=== PATIENT | female | born 1940 | race Caucasian/White ===

== ENCOUNTER 2022-05-08 11:36 | Inpatient (IN) | payer MEDICARE, OTHER ==
[~2022-05-08] VITALS: Ht 165.1 cm; Wt 80.7 kg
--- NOTE | 2022-05-08 12:15 | NUR ---
BIB staff from her SNF in [place] for medical clearance for MHU. The ER is saturated and the pt was left in the ER hallway. Pt was seen by in the hallway.
--- NOTE | 2022-05-08 12:20 | NUR ---
Pt is in her w/c in the ER hallway. Pt is confused and keeps trying to get out of her w/c. Pt does not have a assigned primary nurse. Spoke with Sarah (nursing structural steel erection supervisor) and notified her and requested a sitter/staff for 1:1 observation for pt safety.
[2022-05-08 12:30] LABS: HEMATOCRIT 40.6 % (31.2-41.9); MEAN CORPUSCULAR HEMOGLOBIN 31.3 uug (24.7-32.8); MEAN CORPUSCULAR VOLUME 93.7 fL (75.5-95.3); PLATELET COUNT (AUTO) 256 K/uL (179-408)
[2022-05-08 12:39] LABS: CARBON DIOXIDE 32 mmol/L (21-32); CHLORIDE 106 mmol/L (98-107); CREATININE 1.1 mg/dL (0.6-1.3); GLUCOSE 99 mg/dL (74-106); POTASSIUM 4.1 mmol/L (3.5-5.1); UREA NITROGEN, BLOOD 19 mg/dL (7-18)
[2022-05-08 12:44] LABS: ALANINE AMINOTRANSFERASE 17 U/L (14-59); ALKALINE PHOSPHATASE 59 U/L (50-136); ASPARTATE AMINOTRANSFERASE 12 U/L (15-37); BILIRUBIN,DIRECT 0.2 mg/dL (0.0-0.2); BILIRUBIN,TOTAL 0.5 mg/dL (0.2-1.0); TOTAL PROTEIN, SERUM 7.1 g/dL (6.4-8.2)
[2022-05-08 12:47] LABS: ETHANOL < 3 MG/DL (0-0)
--- NOTE | 2022-05-08 13:10 | NUR ---
Pt moved to room 5B.
--- NOTE | 2022-05-08 13:45 | NUR ---
Pt is sitting in a chair in room 5b and eating lunch, NAD noted at this time.
[2022-05-08 14:15] LABS: ACETAMINOPHEN < 10.0 ug/mL (10-30)
--- NOTE | 2022-05-08 14:30 | NUR ---
Pt is medically clear for psych eval, called Geri who stated she will be in for eval.
--- NOTE | 2022-05-08 17:20 | NUR ---
Pt placed on a 5150 Hold by LENA Nevarez report given to MHU via telephone.
--- NOTE | 2022-05-08 17:34 | NUR ---
Pt brought [place] [facility] [place] (w/c came with pt from her SNF).
[2022-05-08 17:45] VITALS: BP 177/74
[2022-05-08] MEDS ORDERED: MAGNESIUM HYDROXIDE 30 ML LIQUID UDC PO PRN (17:45)
[2022-05-08] MEDS ORDERED: MAG HYDROX/AL HYDROX/SIMETH 30 ML LIQUID UDC PO PRN (17:45)
[2022-05-08] MEDS ORDERED: ACETAMINOPHEN 325 MG TABLET PO PRN (17:45)
[2022-05-08] MEDS ORDERED: BLOOD SUGAR DIAGNOSTIC 1 EACH STRIP VI ONE (17:45)
--- NOTE | 2022-05-08 18:49 | NUR ---
Admitted a case of 82 years old female from [facility] ER with history of Alzheimers, Dementia, Lumbar Radiculopathy, Anxiety. Patient lives in [facility]. Patient is on 5150 status. Patient arrived in a wheelchair accompanied by RN. Initial report given by Volodymyr ORTIZ. On admission patient was cooperative to physical assessment and vital signs. Skin assessment revealed redness on left breast fold. Patient requires more than minimal assistance with ADL. Upon face to face, patient appeared alert, oriented to person, anxious, combative at times. Patient denies SI/HI AH/VH, SOB, pain or any discomfort. Patient refused to sign and consent to all admission documents. Patient was also offered brief orientation to unit rules and policies and given copy of patient's rights handbook. Patient belongings were inventoried and contrabands removed. Psychiatrist Rere and Medical physician Peyton were informed and orders were carried out. Reassurance given. Fall and safety precautions implemented.
--- NOTE | 2022-05-08 19:32 | NUR ---
Called [facility], ([phone]), spoke with JANEL Hernández, who confirmed pt's statu is DNR, [id number] will fax POLST documentation.
[2022-05-08] MEDS ORDERED: BENA20TA9 PO (19:36)
[2022-05-08] MEDS ORDERED: RISP1TAB7 PO (19:36)
[2022-05-08] MEDS ORDERED: DONE5TAB34 PO (19:36)
[2022-05-08] MEDS ORDERED: RISP0.5T5 PO (19:36)
[2022-05-08] MEDS ORDERED: DULO20CA PO (19:36)
[2022-05-08] MEDS ORDERED: ALBU6.7H9 IH (19:36)
[2022-05-08] MEDS ORDERED: MEMA10TA PO (19:36)
[2022-05-08] MEDS ORDERED: CYAN100T44 PO (19:36)
[2022-05-08 20:21] VITALS: BP 136/57
--- NOTE | 2022-05-08 20:30 | NUR ---
Received patient in her room, she was fixing her bed. She is noted A/O x 1. she is poor historian. she has poor insight and judgment into her admission to MHU. she is guarded and forgetful. she is able to ambulate with steady gait. Her V/S are stable. She was given PO fluids and snacks. She is reassured for her safety. safety and fall precautions are in place. will continue to monitor.
[2022-05-09] MEDS: ZOLPIDEM 5 MG TABLET PO PRN (00:03)
--- NOTE | 2022-05-09 00:04 | NUR ---
Patient was noted pacing the hallway. She was confused and disoriented. She stated, "I need to go home. my children are home alone. i can't state tonight". patient was oriented to reality. Multiple redirections given. She was able to take Ambien to help her sleep. Will continue to monitor.
[2022-05-09 07:30] VITALS: BP 125/72
[2022-05-09 08:04] LABS: HEMATOCRIT 40.4 % (31.2-41.9); MEAN CORPUSCULAR HEMOGLOBIN 31.6 uug (24.7-32.8); MEAN CORPUSCULAR VOLUME 93.4 fL (75.5-95.3); PLATELET COUNT (AUTO) 273 K/uL (179-408)
[2022-05-09 08:29] LABS: POTASSIUM 4.1 mmol/L (3.5-5.1)
[2022-05-09] MEDS: MEMANTINE HCL 10 MG TABLET PO SCH ×2 (10:56→20:29)
[2022-05-09] MEDS ORDERED: ALBUTEROL SULFATE 8 GM HFA.AER.AD IH PRN (11:00)
[2022-05-09] MEDS ORDERED: ALBUTEROL SULFATE 2.5 MG/3 ML NEBU NEB PRN (11:15)
--- NOTE | 2022-05-09 11:46 | NUR ---
KRISTAL Initial Discharge Note: Pt [facility] [address] [address] ([phone]). KRISTAL spoke with pt's daughter/DPOA, Sophia ([phone]) who confirmed that she would like the pt to return to [facility] upon discharge. Sophia stated she will be involved via telephone as she lives 2 hours away. KRISTAL will continue to work with pt, family and MD to ensure a safe and proper discharge plan.
--- NOTE | 2022-05-09 11:48 | NUR ---
Firearms Report: Ludlow Machine Operator completed and submitted a DOJ firearms report for 5150 a danger to others and grave disability certifications. A copy of report has been placed in patient chart.
--- NOTE | 2022-05-09 11:48 | NUR ---
KRISTAL Family Contact: KRISTAL spoke with pt's daughter/DPOA, Sophia ([phone]) who confirmed that she would like the pt to return to [facility] upon discharge. Sophia stated she will be involved via telephone as she lives 2 hours away. Sophia stated pt has 3 other children. However, Sophia stated she is the only DPOA/field contact technician.
[2022-05-09] MEDS: LORAZEPAM 0.5 MG TABLET PO PRN ×2 (14:26→21:42)
--- NOTE | 2022-05-09 15:11 | NUR ---
Gps/Boilers Inspector- MRSA swab to both nares , obtained , sent to lab.
--- NOTE | 2022-05-09 15:13 | NUR ---
Gps/Psychopaedic Nurse- Crying spells noted, confused, disoriented, pacing around , goes to other patient's room, constantly needing redirections. Reoriented from time to time. Compliant with her meds.
[2022-05-09 16:00] VITALS: BP 134/70
[2022-05-09 20:13] VITALS: BP 145/90
[2022-05-09] MEDS: ATORVASTATIN 10 MG TABLET PO SCH (20:29)
[2022-05-09] MEDS: DONEPEZIL 5 MG TABLET PO SCH (20:29)
[2022-05-09] MEDS: QUETIAPINE FUMARATE 25 MG TABLET PO SCH (20:29)
--- NOTE | 2022-05-09 20:30 | NUR ---
RECEIVED PATIENT IN THE HALLWAY. SHE IS NOTED PACING THE HALLWAY AND WONDERING AROUND THE UNIT. SHE IS A/O X 1, SHE IS VERY FORGETFUL AND DISORIENTED. HER SPEECH IS DISORGANIZED, SHE IS A POOR HISTORIAN. HOWEVER, SHE IS EASILY REDIRECTED. NO AGGRESSIVE OR COMBATIVE BX NOTED AT THIS TIME. PATIENT IS ABLE TO COMPLY WITH HER MEDICATION REGIMENT. SHE WAS GIVEN PO FLUIDS AND SNACKS. HER V/S ARE STABLE, PT IN NO DISTRESS. SHE IS REASSURED FOR HER SAFETY. SAFETY AND FALL PRECAUTIONS ARE IN PLACE. WILL CONTINUE TO MONITOR.
[2022-05-10 07:30] VITALS: BP 134/62
[2022-05-10] MEDS ORDERED: CYANOCOBALAMIN 100 MCG TABLET PO SCH (09:00)
[2022-05-10] MEDS: MEMANTINE HCL 10 MG TABLET PO SCH ×2 (09:35→20:38)
[2022-05-10] MEDS: ESCITALOPRAM OXALATE 10 MG TABLET PO SCH (09:38)
[2022-05-10] MEDS: CYANOCOBALAMIN 1,000 MCG TABLET PO SCH (09:39)
[2022-05-10] MEDS: BENAZEPRIL HCL 20 MG TABLET PO SCH (09:39)
[2022-05-10 16:00] VITALS: BP 115/61
[2022-05-10] MEDS: LORAZEPAM 0.5 MG TABLET PO PRN (17:29)
--- NOTE | 2022-05-10 17:30 | NUR ---
Gps/Maintenance Instructor- Remains confused, constantly needing redirections, wanders to other patient's room . Patient was able to take a long nap this pm. When patient woke up , she start pushing doors claimed she needed to go home, wants her clothes to wear .Monitored for safety
[2022-05-10 19:45] VITALS: BP 123/65
[2022-05-10] MEDS: ATORVASTATIN 10 MG TABLET PO SCH (20:38)
[2022-05-10] MEDS: DONEPEZIL 5 MG TABLET PO SCH (20:38)
[2022-05-10] MEDS: QUETIAPINE FUMARATE 25 MG TABLET PO SCH (20:39)
--- NOTE | 2022-05-11 05:18 | NUR ---
GPS NOTES: Patient is noted to be confused, wandering around the unit. She is somewhat intrusive going in to other patients room. She needs constant re-direction, however tends to be aggressive when re-directed. She is med compliant. She slept uninterrupted during shift. Frequent monitoring for safety in placed.
[2022-05-11 07:51] VITALS: BP 114/61
[2022-05-11] MEDS: ESCITALOPRAM OXALATE 10 MG TABLET PO SCH (08:04)
[2022-05-11] MEDS: MEMANTINE HCL 10 MG TABLET PO SCH ×2 (08:04→20:59)
[2022-05-11] MEDS: CYANOCOBALAMIN 1,000 MCG TABLET PO SCH (08:04)
[2022-05-11] MEDS: BENAZEPRIL HCL 20 MG TABLET PO SCH (08:05)
--- NOTE | 2022-05-11 09:41 | NUR ---
Pt received ambulating unit hallway. Confused, disoriented, and forgetful. Requires frequent redirection. Compliant with medications as ordered. No behavioral issues noted at this time.
[2022-05-11] MEDS: QUETIAPINE FUMARATE 25 MG TABLET PO SCH ×3 (09:55→20:59)
[2022-05-11 16:18] VITALS: BP 92/56
[2022-05-11 19:59] VITALS: BP 122/55
[2022-05-11] MEDS: DONEPEZIL 5 MG TABLET PO SCH (20:59)
[2022-05-12 07:53] VITALS: BP 136/58
[2022-05-12] MEDS: LORAZEPAM 0.5 MG TABLET PO PRN ×2 (08:11→20:07)
[2022-05-12] MEDS: QUETIAPINE FUMARATE 25 MG TABLET PO SCH ×3 (08:11→20:06)
[2022-05-12] MEDS: BENAZEPRIL HCL 20 MG TABLET PO SCH (08:12)
[2022-05-12] MEDS: ESCITALOPRAM OXALATE 10 MG TABLET PO SCH (08:12)
[2022-05-12] MEDS: MEMANTINE HCL 10 MG TABLET PO SCH ×2 (08:13→20:06)
[2022-05-12] MEDS: CYANOCOBALAMIN 1,000 MCG TABLET PO SCH (09:12)
--- NOTE | 2022-05-12 15:33 | NUR ---
The patient spends most of the shift, wondering around the halls, walking into the wrong rooms and requiring frequent redirection and reorientation. This patient is labile and is easily angered by most minimal situations. Poor impulse control and insight noted. However, she is medication compliant and can be pleasant at times.This music writer will continue to reassure and assist the patient when needed. Safety Stratiges are in place.
[2022-05-12 16:41] VITALS: BP 90/57
[2022-05-12 19:52] VITALS: BP 112/56
[2022-05-12] MEDS: DONEPEZIL 5 MG TABLET PO SCH (20:06)
[2022-05-12] MEDS: ZOLPIDEM 5 MG TABLET PO PRN (20:56)
[2022-05-13] MEDS: LORAZEPAM 0.5 MG TABLET PO PRN ×4 (02:27→23:05)
[2022-05-13 07:40] VITALS: BP 134/71
[2022-05-13] MEDS: CYANOCOBALAMIN 1,000 MCG TABLET PO SCH (09:00)
[2022-05-13] MEDS: MEMANTINE HCL 10 MG TABLET PO SCH ×2 (09:23→20:44)
[2022-05-13] MEDS: QUETIAPINE FUMARATE 25 MG TABLET PO SCH ×3 (09:23→20:44)
[2022-05-13] MEDS: BENAZEPRIL HCL 20 MG TABLET PO SCH (09:28)
[2022-05-13] MEDS: GLUCERNA SHAKE 237 ML CAN PO SCH (12:00)
--- NOTE | 2022-05-13 15:26 | NUR ---
Received patient Confused disoriented and forgetful.wandering around in the unit unable to found her room at all time, Requires frequent redirection. PRN Ativan give for agitation behavior ,patient with poor insight and impair judgement ,continue monitoring for safety.
[2022-05-13 16:25] VITALS: BP 127/82
[2022-05-13 19:36] VITALS: BP 136/76
[2022-05-13] MEDS: ZOLPIDEM 5 MG TABLET PO PRN (21:32)
--- NOTE | 2022-05-14 04:29 | NUR ---
GPS NOTES: Patient wanders around the unit, intrusive and going to other patients room. Needs constant re-direction as she is confused and forgetful.She tends to be argumentative with staff when being directed. She is med compliant. Continues to be labile. Ativan given. Closely monitoring observed.
[2022-05-14 07:30] VITALS: BP 136/74
[2022-05-14] MEDS: CYANOCOBALAMIN 1,000 MCG TABLET PO SCH (08:23)
[2022-05-14] MEDS: MEMANTINE HCL 10 MG TABLET PO SCH ×2 (08:23→20:21)
[2022-05-14] MEDS: LORAZEPAM 0.5 MG TABLET PO PRN ×2 (08:23→21:33)
[2022-05-14] MEDS: QUETIAPINE FUMARATE 25 MG TABLET PO SCH ×3 (08:23→20:21)
[2022-05-14] MEDS: BENAZEPRIL HCL 20 MG TABLET PO SCH (08:24)
[2022-05-14] MEDS: GLUCERNA SHAKE 237 ML CAN PO SCH (08:24)
[2022-05-14 16:00] VITALS: BP 121/60
[2022-05-14 19:44] VITALS: BP 113/55
--- NOTE | 2022-05-15 05:16 | NUR ---
Pt confused and labile. Shower given. Patient yells at staff from time to time. Needs continuous reorientation and reassurance. Safety strategies in place. Sleep hours 7.30.
[2022-05-15 07:30] VITALS: BP 139/70
[2022-05-15] MEDS: CYANOCOBALAMIN 1,000 MCG TABLET PO SCH (09:04)
[2022-05-15] MEDS: MEMANTINE HCL 10 MG TABLET PO SCH ×2 (09:04→20:09)
[2022-05-15] MEDS: QUETIAPINE FUMARATE 25 MG TABLET PO SCH ×3 (09:04→20:09)
[2022-05-15] MEDS: BENAZEPRIL HCL 20 MG TABLET PO SCH (09:04)
[2022-05-15] MEDS: GLUCERNA SHAKE 237 ML CAN PO SCH (09:05)
[2022-05-15 16:00] VITALS: BP 117/65
--- NOTE | 2022-05-15 16:22 | NUR ---
KRISTAL Discharge Update: KRISTAL contacted Kristin in admissions at [facility] located at [address] [address] ([phone]) and stated that the geriatric social worker, Rachelle TORRES will call this business writer tomorrow to discuss transportation details for the pt's return back to [place] upon discharge.
--- NOTE | 2022-05-15 17:39 | NUR ---
GPS: Patient remain wanders around in the unit, Needs constant re-direction as she is confused and forgetful.compliant with meds. pt tends to be argumentative with staff when being directed. Continues to be labile. continue plan of care.
[2022-05-15 19:49] VITALS: BP 143/77
[2022-05-16 07:30] VITALS: BP 120/54
[2022-05-16] MEDS: MEMANTINE HCL 10 MG TABLET PO SCH ×2 (08:56→20:43)
[2022-05-16] MEDS: BENAZEPRIL HCL 20 MG TABLET PO SCH (08:56)
[2022-05-16] MEDS: QUETIAPINE FUMARATE 25 MG TABLET PO SCH ×3 (08:56→20:43)
[2022-05-16] MEDS: CYANOCOBALAMIN 1,000 MCG TABLET PO SCH (08:56)
[2022-05-16] MEDS: GLUCERNA SHAKE 237 ML CAN PO SCH (08:57)
--- NOTE | 2022-05-16 13:00 | NUR ---
Neva Holt from the court called about pt's rights. I gave her info she requested from the 5150 and 14 day hold forms. She spoke to the pt on the phone. Pt did not want to attend to the court hearing.
[2022-05-16 16:00] VITALS: BP 112/66
--- NOTE | 2022-05-16 16:20 | NUR ---
Received patient pacing in the hallway, confused, forgetful, disoriented, not knowing where to go, agitated and anxious at times. Patient is A/O X 2 to person. Requires more than minimal assistance with ADL. Reality orientation provided. Fall and safety precautions implemented.
--- NOTE | 2022-05-16 16:35 | NUR ---
Patient had court hearing today and pen tester gave 14 day probable cause for GD only.
[2022-05-16 20:07] VITALS: BP 116/48
--- NOTE | 2022-05-17 02:02 | NUR ---
Patient has been resting well this PM. Medication compliant, confused and disoriented. Wonders around the unit , trying to get out. Stands by the door at times. When instructed to move, the patient becomes hostile and yells at this staff. This patient requires frequent reorientation and redirection throughout the shift. Safety stratiges are in place. No acute issues noted at this time.
[2022-05-17 07:30] VITALS: BP_SYST 124; BP_SYST 125; BP_DIAS 54; BP_DIAS 68
[2022-05-17] MEDS: CYANOCOBALAMIN 1,000 MCG TABLET PO SCH (08:51)
[2022-05-17] MEDS: MEMANTINE HCL 10 MG TABLET PO SCH ×2 (08:51→20:57)
[2022-05-17] MEDS: QUETIAPINE FUMARATE 25 MG TABLET PO SCH ×3 (08:51→20:57)
[2022-05-17] MEDS: GLUCERNA SHAKE 237 ML CAN PO SCH (08:52)
[2022-05-17] MEDS: BENAZEPRIL HCL 20 MG TABLET PO SCH (08:52)
[2022-05-17] MEDS: LORAZEPAM 1 MG TABLET PO PRN (11:13)
--- NOTE | 2022-05-17 11:20 | NUR ---
Patient is given Ativan 1 mg at 11:13 for anxiety, agitation, combativeness, will be monitored for effectiveness.
--- NOTE | 2022-05-17 13:58 | NUR ---
Received patient sleeping in her room. Patient is disoriented, confused, disorganized, anxious at times. Patient states "Where are my kids, have you seen them?" "You're heartless, and I'll punch you if you say they're not here one more time!" Patient needs to be redirected. Patient is compliant with medications. Reality orientation provided. Fall and safety precautions implemented.
[2022-05-17 16:00] VITALS: BP 108/61
--- NOTE | 2022-05-17 20:30 | NUR ---
Received patient in her room in bed asleep but easily arousable. patient is A/O x 1. she is calm and pleasant upon approached. Patient is a poor historian. Her speech is disorganized. Pt needs constant reality orientation but she is easily redirectable. She is reassured for her safety. safety and fall precautions are in place. V/S stable, she was given PO fluids and snacks. will continue to monitor.
[2022-05-17 21:41] VITALS: BP 132/67
[2022-05-18 07:37] VITALS: BP 127/59
[2022-05-18] MEDS: MEMANTINE HCL 10 MG TABLET PO SCH ×2 (08:26→20:06)
[2022-05-18] MEDS: BENAZEPRIL HCL 20 MG TABLET PO SCH (08:27)
[2022-05-18] MEDS: QUETIAPINE FUMARATE 25 MG TABLET PO SCH ×3 (08:27→20:06)
[2022-05-18] MEDS: CYANOCOBALAMIN 1,000 MCG TABLET PO SCH (08:27)
[2022-05-18] MEDS: GLUCERNA SHAKE 237 ML CAN PO SCH (08:28)
--- NOTE | 2022-05-18 15:41 | NUR ---
Received patient sleeping in her room. Patient is A/O X 1 to person. Patient is confused, disoriented, disorganized, cooperative with nursing care, compliant with medications. Patient states "I have to go home. They're waiting for me there" "People screams too much here. How can you stand this?" Patient is labile and have outburst at times. Reassurance given. Fall and safety precautions implemented.
[2022-05-18 16:24] VITALS: BP 119/60
[2022-05-18 21:06] VITALS: BP 134/74
--- NOTE | 2022-05-19 01:55 | NUR ---
Received patient in her room in bed, she is noted awake A/O x 1. she is calm and pleasant upon approached. Patient is a poor historian. Her speech is disorganized. Pt needs constant reality orientation but she is easily redirectable. She is reassured for her safety. safety and fall precautions are in place. V/S stable, she was given PO fluids and snacks. will continue to monitor.
[2022-05-19 07:52] VITALS: BP 115/60
[2022-05-19] MEDS: QUETIAPINE FUMARATE 25 MG TABLET PO SCH ×3 (08:36→20:16)
[2022-05-19] MEDS: CYANOCOBALAMIN 1,000 MCG TABLET PO SCH (08:38)
[2022-05-19] MEDS: MEMANTINE HCL 10 MG TABLET PO SCH ×2 (08:38→20:15)
[2022-05-19] MEDS: BENAZEPRIL HCL 20 MG TABLET PO SCH (08:38)
[2022-05-19] MEDS: GLUCERNA SHAKE 237 ML CAN PO SCH (08:39)
--- NOTE | 2022-05-19 14:38 | NUR ---
Received patient sleeping in her room. Patient is A/O X 1 to self. Patient is confused, forgetful, needs to be redirected, disorganized, disoriented, pacing in the hallway without knowing where to go or what to say, flat mood at times, pleasant most of the time, cooperative with nursing care, compliant with medications. Reassurance given. Fall and safety precautions implemented.
[2022-05-19 16:19] VITALS: BP 117/58
--- NOTE | 2022-05-19 20:30 | NUR ---
Received patient in her room in bed, she is noted awake A/O x 1. she is calm and pleasant upon approached. Patient is a poor historian. she is forgetful. Pt needs constant reality orientation and redirections. she is easily redirectable and able to follow unit rules. She is reassured for her safety. safety and fall precautions are in place. V/S stable, she was given PO fluids and snacks. will continue to monitor.
[2022-05-19 21:42] VITALS: BP 136/64
[2022-05-20 07:50] VITALS: BP 142/87
[2022-05-20] MEDS: LORAZEPAM 1 MG TABLET PO PRN ×2 (08:44→20:13)
[2022-05-20] MEDS: MEMANTINE HCL 10 MG TABLET PO SCH ×2 (08:44→20:13)
[2022-05-20] MEDS: CYANOCOBALAMIN 1,000 MCG TABLET PO SCH (08:44)
[2022-05-20] MEDS: GLUCERNA SHAKE 237 ML CAN PO SCH (08:45)
[2022-05-20] MEDS: QUETIAPINE FUMARATE 25 MG TABLET PO SCH ×3 (08:45→20:13)
[2022-05-20] MEDS: BENAZEPRIL HCL 20 MG TABLET PO SCH (08:45)
--- NOTE | 2022-05-20 15:33 | NUR ---
Received patient Confused disoriented and forgetful.wandering around in the unit unable to found her room and restroom at all time, Requires frequent redirection. poor insight and poor impulse control PRN Ativan give for agitation behavior . unable to attend in group activity ,continue monitoring for safety.
[2022-05-20 15:55] VITALS: BP 128/72
[2022-05-20 20:55] VITALS: BP 117/66
--- NOTE | 2022-05-21 01:42 | NUR ---
This patient is confused and disoriented. When the patient needs some assist with her basic ADLS, she will yell and become easily angered with the staff providing care. Constant redirection and reorientation is provided. Many times the patient wonders around into other patients rooms. Safety stratiges are in place and continuing to monitor the patient for outbursts and behavior escalation. Poor impulse control and no situational awareness.
[2022-05-21 07:41] VITALS: BP 146/46
[2022-05-21] MEDS: QUETIAPINE FUMARATE 25 MG TABLET PO SCH ×3 (08:41→20:26)
[2022-05-21] MEDS: MEMANTINE HCL 10 MG TABLET PO SCH ×2 (08:41→20:26)
[2022-05-21] MEDS: GLUCERNA SHAKE 237 ML CAN PO SCH (08:41)
[2022-05-21] MEDS: CYANOCOBALAMIN 1,000 MCG TABLET PO SCH (08:41)
[2022-05-21] MEDS: BENAZEPRIL HCL 20 MG TABLET PO SCH (08:41)
[2022-05-21] MEDS: LORAZEPAM 1 MG TABLET PO PRN (12:00)
[2022-05-21 15:24] VITALS: BP 102/60
[2022-05-21 19:59] VITALS: BP 126/64
[2022-05-21] MEDS: ZOLPIDEM 5 MG TABLET PO PRN (21:03)
[2022-05-22] MEDS: LORAZEPAM 1 MG TABLET PO PRN ×2 (02:44→21:00)
[2022-05-22 07:30] VITALS: BP 155/60
[2022-05-22] MEDS: CYANOCOBALAMIN 1,000 MCG TABLET PO SCH (08:44)
[2022-05-22] MEDS: MEMANTINE HCL 10 MG TABLET PO SCH ×2 (08:45→21:02)
[2022-05-22] MEDS: QUETIAPINE FUMARATE 25 MG TABLET PO SCH ×3 (08:45→21:00)
[2022-05-22] MEDS: BENAZEPRIL HCL 20 MG TABLET PO SCH (08:46)
[2022-05-22] MEDS: GLUCERNA SHAKE 237 ML CAN PO SCH (08:47)
--- NOTE | 2022-05-22 10:15 | NUR ---
SW Discharge Update: This SW spoke with [facility] ([phone]) and spoke with social media sr strategy manager, Mackenzie who confirmed that pt is welcome back on Friday. Mackenzie confirmed that pt will be provided transportation from [place] to return to [facility] on Friday at 11am. Mackenzie confirmed that transportation will be by non ambulance van with wheelchair accessibility by pile driver operator, Fabrice.
[2022-05-22 16:00] VITALS: BP 113/35
--- NOTE | 2022-05-22 17:43 | NUR ---
Received patient sleeping in her room. Patient is A/O X 2 to person. Patient is disoriented, confused, pacing in the hallway. Patient is compliant with medications. Reassurance given. Fall and safety precautions implemented.
[2022-05-22 20:11] VITALS: BP 127/58
--- NOTE | 2022-05-23 05:07 | NUR ---
Patient appears to be more confused and forgetful this shift. She is aimlessly wandering in the unit looking lost and going from room to room. She is needing more re-direction and re-orientation to reality. She is making no meaningful conversations, very disorganized thoughts noted. She is making statements "I am waiting for this ladies, for my paperworks", "I need to wait for my daughter" "How to get out here, I need to be home". She easily gets irritated when presented to reality and not understanding concepts at this time. She was given Ativan as ordered. Effective. Patient slept well. No distress noted. All safety precautions implemented.
[2022-05-23 07:30] VITALS: BP 119/60
--- NOTE | 2022-05-23 09:58 | NUR ---
KRISTAL Family Contact: SW spoke with pt's daughter/DPOA, Sophia ([phone]) with Dr. Jernigan. Dr. Jernigan discussed [facility]. Sophia is aware and agreeable with the discharge plan.
[2022-05-23] MEDS: QUETIAPINE FUMARATE 25 MG TABLET PO SCH ×3 (10:07→20:15)
[2022-05-23] MEDS: CYANOCOBALAMIN 1,000 MCG TABLET PO SCH (10:07)
[2022-05-23] MEDS: MEMANTINE HCL 10 MG TABLET PO SCH ×2 (10:08→20:16)
[2022-05-23] MEDS: BENAZEPRIL HCL 20 MG TABLET PO SCH (10:09)
[2022-05-23] MEDS: GLUCERNA SHAKE 237 ML CAN PO SCH (10:10)
--- NOTE | 2022-05-23 15:57 | NUR ---
Received patient sleeping in her room. Pt. is A/O X 1 to person. Patient is confused, disoriented, forgetful, pacing and wandering in the hallway without knowing where to go or what she wants. Patient is irritable at times. Requires more than minimal assistance with ADL, needs to be redirected. Patient is compliant with medications and cooperative with nursing care. Reality orientation provided. Fall and safety precautions implemented.
[2022-05-23 16:00] VITALS: BP 101/58
[2022-05-23 20:11] VITALS: BP 100/52
--- NOTE | 2022-05-23 20:30 | NUR ---
RECEIVED PATIENT IN THE HALLWAY. SHE IS NOTED A/O X 1. SHE IS FORGETFUL AND SHE REQUIRED REALITY ORIENTATION. SHE IS ABLE TO FOLLOW SIMPLE DIRECTIONS. SHE IS A POOR HISTORIAN. NO AGGRESSIVE OR COMBATIVE BX NOTED AT THIS TIME. PATIENT IS REASSURED FOR HER SAFETY. SAFETY AND FALL PRECAUTIONS ARE IN PLACE. WILL CONTINUE TO MONITOR.
--- NOTE | 2022-05-23 20:40 | NUR ---
PATIENT WAS GIVEN PO FLUIDS AND SNACKS. SHE IS COMPLIANT WITH MEDICATION REGIMENT DIET AND PLAN OF CARE.
[2022-05-24 07:30] VITALS: BP 106/51
[2022-05-24] MEDS: LORAZEPAM 1 MG TABLET PO PRN (08:39)
[2022-05-24] MEDS: MEMANTINE HCL 10 MG TABLET PO SCH (08:41)
[2022-05-24] MEDS: QUETIAPINE FUMARATE 25 MG TABLET PO SCH (08:41)
[2022-05-24] MEDS: CYANOCOBALAMIN 1,000 MCG TABLET PO SCH (08:41)
[2022-05-24 08:42] VITALS: BP 105/50
[2022-05-24] MEDS: BENAZEPRIL HCL 20 MG TABLET PO SCH (08:42)
[2022-05-24] MEDS: GLUCERNA SHAKE 237 ML CAN PO SCH (08:43)
--- NOTE | 2022-05-24 09:02 | NUR ---
KRISTAL Discharge Note: [facility] located at [address] [place] [address] via non ambulance facility transport by facility shuttle driver at 11:30AM. KRISTAL spoke with Dane in admissions and social workers Kristin and assistant city attorney Mackenzie who are aware and agreeable with the discharge plan. KRISTAL spoke with pts daughter/DPOA, Sophia ([phone]) who is aware and agreeable with the discharge plan. Pt is aware and agreeable with discharge plan. Pt is alert and oriented x2, is unable to plan for self-care at this time. However, pt is willing to accept care at SNF. Pt denies any suicidal or homicidal ideation. Pt will follow-up at the facility with her returning Psychiatrist, Dr. Gonzales and Services Coordinator, Dr. Rhoades. Pt presents with calm mood and congruent affect. PHARMACY: Pharm[address], [place] [address] ([phone]).
--- NOTE | 2022-05-24 09:55 | NUR ---
KRISTAL Discharge Note Update: [facility] ([phone]) located at [address] [place] [address] via non ambulance facility transport by facility moving van driver at 11:30AM. KRISTAL spoke with Dane in admissions and social workers Kristin and mortgage assistant Mackenzie who are aware and agreeable with the discharge plan. KRISTAL spoke with pts daughter/DPOA, Sophia ([phone]) who is aware and agreeable with the discharge plan. Pt is aware and agreeable with discharge plan. Pt is alert and oriented x2, is unable to plan for self-care at this time. However, pt is willing to accept care at SNF. Pt denies any suicidal or homicidal ideation. Pt will follow-up at the facility with her returning Psychiatrist, Dr. Gonzales and Soa Integration Architect, Dr. Rhoades. Pt presents with calm mood and congruent affect. PHARMACY: Pharm[address], [place] [address] ([phone]).
--- NOTE | 2022-05-24 11:50 | NUR ---
[facility] via non ambulance facility transport by facility solo truck driver at 11:30AM. SW spoke with pts daughter/DPOA, Sophia ([phone]) who is aware and agreeable with the discharge plan. Pt is aware and agreeable with discharge plan. Pt is alert and oriented x2, is unable to plan for self-care at this time. Pt denies any suicidal or homicidal ideation. Pt will follow-up at the facility with her returning Psychiatrist, Dr. Gonzales and Coremaker, Dr. Rhoades. Pt presents with calm mood and congruent affect. all personal belonging returned to patient,vital sign stable denies any pain or discomfort.
== END 2022-05-24 11:55 | DRG 885 ==
LOC: ER 11:36 → GPS 16:00
PROVIDERS: ADMIT Psychiatry & Neurology Psychiatry; ATTEND Internal Medicine
DX: F29 Unspecified psychosis not due to a substance or known physiological condition (principal); F02.83 Dementia in other diseases classified elsewhere, unspecified severity, with mood disturbance; F02.84 Dementia in other diseases classified elsewhere, unspecified severity, with anxiety; F02.818 Dementia in other diseases classified elsewhere, unspecified severity, with other behavioral disturbance; F02.82 Dementia in other diseases classified elsewhere, unspecified severity, with psychotic disturbance; G30.9 Alzheimer's disease, unspecified; E78.5 Hyperlipidemia, unspecified; I49.5 Sick sinus syndrome; I10 Essential (primary) hypertension; R62.7 Adult failure to thrive; Z20.822 Contact with and (suspected) exposure to COVID-19; F39 Unspecified mood [affective] disorder; Z68.29 Body mass index [BMI] 29.0-29.9, adult; Z79.899 Other long term (current) drug therapy
CPT/HCPCS: 36415; 85025; 93005; A4663; G0480

== ENCOUNTER 2022-10-17 11:36 | Inpatient (IN) | payer MEDICARE, OTHER ==
[~2022-10-17] VITALS: Ht 165.1 cm; Wt 80.7 kg
[~2022-10-17 11:36] MED LIST: ALBU6.7H9 IH; BENA20TA9 PO; CYAN100T44 PO
--- NOTE | 2022-10-17 12:00 | NUR ---
Pt is confused, keeps walking out of room 1B and wanderting around the ER. Pt brought back to room 1B multiple times. Nursing supervisor gate services notified and requested 1:1 sitter for pt safety.
[2022-10-17] MEDS ORDERED: HALOPERIDOL LACTATE 5 MG/1 ML VIAL ONE ×2 (12:07→13:16)
[2022-10-17] MEDS ORDERED: LORAZEPAM 2 MG/1 ML VIAL ONE ×2 (12:08→13:14)
--- NOTE | 2022-10-17 12:08 | NUR ---
Pt keeps on getting out of bed and wandering. Redirect back to bed multiple times, safety measures in place.
[2022-10-17 12:14] LABS: HEMATOCRIT 42.4 % (31.2-41.9); MEAN CORPUSCULAR HEMOGLOBIN 31.2 uug (24.7-32.8); MEAN CORPUSCULAR VOLUME 93.6 fL (75.5-95.3); PLATELET COUNT (AUTO) 257 K/uL (179-408)
[2022-10-17] MEDS ORDERED: LORAZEPAM 2 MG/1 ML VIAL IM ONE ×2 (12:15→13:15)
[2022-10-17] MEDS ORDERED: HALOPERIDOL LACTATE 5 MG/1 ML VIAL IM ONE ×2 (12:15→13:15)
--- NOTE | 2022-10-17 12:27 | NUR ---
Pt is sitting in bed, lunch tray provided, pt ate w/ good appettite.
[2022-10-17 12:42] LABS: CARBON DIOXIDE 30 mmol/L (21-32); CHLORIDE 106 mmol/L (98-107); GLUCOSE 89 mg/dL (74-106); POTASSIUM 4.1 mmol/L (3.5-5.1); UREA NITROGEN, BLOOD 19 mg/dL (7-18)
[2022-10-17 12:50] LABS: ALANINE AMINOTRANSFERASE 23 U/L (14-59); ALKALINE PHOSPHATASE 68 U/L (50-136); ASPARTATE AMINOTRANSFERASE 11 U/L (15-37); BILIRUBIN,DIRECT 0.2 mg/dL (0.0-0.2); BILIRUBIN,TOTAL 0.8 mg/dL (0.2-1.0); TOTAL PROTEIN, SERUM 7.6 g/dL (6.4-8.2)
[2022-10-17 12:53] LABS: THYROID STIMULATING HORMONE 3.247 mIU/mL (0.358-3.740)
[2022-10-17 13:53] LABS: *BILIRUBIN,URIN NEGATIVE (NEGATIVE); *BLOOD, URINE 2+ (NEGATIVE); *CLARITY,URINE CLEAR (CLEAR); *COLOR,URINE YELLOW (YELLOW); *KETONES,URINE NEGATIVE (NEGATIVE); *UROBILINOGEN,URINE 0.2 E.U./dl (NORMAL); LEUKOCYTE ESTERASE ,URINE 3+ (NEGATIVE); NITRITE, URINE NEGATIVE (NEGATIVE); UGLUCOSE NEGATIVE (NEGATIVE)
[2022-10-17 14:18] LABS: *AMPHETAMINE, URINE NEGATIVE (NEGATIVE); *CANNABINOID, URINE NEGATIVE (NEGATIVE); *COCCAINE, URINE NEGATIVE (NEGATIVE)
--- NOTE | 2022-10-17 14:24 | NUR ---
Pt is medically cleared by Dr Pan, nora Hamilton BLOWER INSULATOR from [facility] for eval.
[2022-10-17] MEDS ORDERED: LIDOCAINE HCL 1% 20 ML VIAL ONE (14:27)
[2022-10-17] MEDS ORDERED: CEFTRIAXONE 1 G VIAL ONE (14:27)
[2022-10-17] MEDS ORDERED: CEFTRIAXONE 1 G in IV DEXTROSE 5% 50 ML IV ONE (14:30)
[2022-10-17] MEDS ORDERED: CEFTRIAXONE 1 G VIAL IM ONE (14:45)
[2022-10-17 15:07] LABS: *PHENCYCLIDINE SCREEN,URINE NEGATIVE (NEGATIVE)
[2022-10-17 15:59] LABS: RBC,URINE 20-50 /HPF (0-3)
[2022-10-17 16:00] LABS: BACTERIA,URINE MANY /HPF (NONE SEEN); SQUAMOUS EPITHELIAL CELL,UR FEW /HPF (NONE SEEN); WBC,URINE 20-50 /HPF (0-3)
--- NOTE | 2022-10-17 16:00 | NUR ---
SBAR report given to ANGEL Fitzpatrick and pt trans [place] [facility] via W[facility]C.
--- NOTE | 2022-10-17 16:15 | NUR ---
Nursing - Received report from [facility] ER Nurse. Admitted from ER via wheel chair, in no sign of any distress.Alert, oriented x 2 ,Has a metal bracelet, and bracelet with a beads, yellow ring on her right ring finger , refused to give up, told patient will put it in the safe and will return them back to her when she leaves from here. Skin very dry tenting , also refused body checks, wants to keep her clothes for now , will attempt to offer shower when full settled . On face to face with patient , denies any S.I. or H.I. . Oriented to unit settings , routine admission care gwensteve.
[2022-10-17] MEDS ORDERED: MAG HYDROX/AL HYDROX/SIMETH 30 ML LIQUID UDC PO PRN (16:30)
[2022-10-17] MEDS ORDERED: MAGNESIUM HYDROXIDE 30 ML LIQUID UDC PO PRN (16:30)
[2022-10-17] MEDS ORDERED: LORAZEPAM 0.5 MG TABLET PO PRN (16:30)
[2022-10-17] MEDS ORDERED: BLOOD SUGAR DIAGNOSTIC 1 EACH STRIP VI ONE (16:30)
[2022-10-17] MEDS ORDERED: ACETAMINOPHEN 325 MG TABLET PO PRN (16:30)
--- NOTE | 2022-10-17 17:00 | NUR ---
Pt refused EKG, nursing staff present and aware of pt refusal..
[2022-10-17] MEDS: LORAZEPAM 1 MG TABLET PO PRN (20:28)
--- NOTE | 2022-10-18 04:36 | NUR ---
Received patient awake, ambulate to hallways, with episode of wandering to other rooms, episode of collecting dirty linen from hamper. Patient given ativan earlier on the shift for anxiety, and episode of agitation, get upset when given redirections. Patient sleep most of the night, continent of bowel and bladder, cont to monitor.
[2022-10-18] MEDS: LORAZEPAM 1 MG TABLET PO PRN ×2 (06:26→12:27)
--- NOTE | 2022-10-18 06:31 | NUR ---
Patient awale ambulate to hallways, patient refused shower at this time, Patient looking for door, stated wanted to go home now, patient noted with anxiety wanders to other rooms, reorient patient that the doctor will see her first. patient un redirectable,given ativan po as ordered, cont to monitor.
[2022-10-18 07:00] LABS: HEMATOCRIT 37.8 % (31.2-41.9); MEAN CORPUSCULAR HEMOGLOBIN 31.4 uug (24.7-32.8); MEAN CORPUSCULAR VOLUME 92.7 fL (75.5-95.3); PLATELET COUNT (AUTO) 227 K/uL (179-408)
[2022-10-18 07:17] LABS: CARBON DIOXIDE 26 mmol/L (21-32); CHLORIDE 107 mmol/L (98-107); CREATININE 0.9 mg/dL (0.6-1.3); GLUCOSE 124 mg/dL (74-106); POTASSIUM 3.8 mmol/L (3.5-5.1); UREA NITROGEN, BLOOD 25 mg/dL (7-18)
[2022-10-18 08:00] VITALS: BP 113/64
[2022-10-18] MEDS: QUETIAPINE FUMARATE 25 MG TABLET PO SCH ×3 (10:58→20:48)
[2022-10-18] MEDS: MEMANTINE HCL 10 MG TABLET PO SCH ×2 (11:02→20:47)
[2022-10-18] MEDS ORDERED: ALBUTEROL SULFATE 8 GM HFA.AER.AD IH PRN (11:15)
[2022-10-18] MEDS ORDERED: ALBUTEROL SULFATE 2.5 MG/3 ML NEBU NEB PRN (11:45)
[2022-10-18] MEDS: CEphaleXIN 500 MG CAPSULE PO SCH ×2 (14:00→21:14)
--- NOTE | 2022-10-18 14:20 | NUR ---
Gps/Veterinary Science Teacher- Continue to observed patient wander around, going room to room , gets irritable, agitated when being redirected , put patient in the arley-chair, appeared to be sleepy , safety emphasized.
--- NOTE | 2022-10-18 14:44 | NUR ---
KRISTAL Initial Discharge Note: [facility] located at [address] [address] . Per Rachelle at the facility, pt is not welcome back due to aggressive behavior. Pt's daughter/DPOA, Sophia [phone] is aware and agreeable that pt will discharge to a different prison facility upon discharge. KRISTAL will continue to work with pt, family and MD to ensure a safe and proper discharge plan.
--- NOTE | 2022-10-18 14:47 | NUR ---
SW Family Contact: Pt's daughter/DPOA, Sophia [phone] is aware and agreeable that pt will discharge to a different long-term facility upon discharge. Sophia is very kind and discussed her appreciation for this SW's assistance last admission and this admission. Sophia asked for pt to be transferred closer to [facility] and agreed to this SW referring to [facility] and rehab in [place] [phone].
--- NOTE | 2022-10-18 14:47 | NUR ---
Firearms Report: Head Of Measurement & Insights completed and submitted a DOJ firearms report for 5150 grave disability certifications. A copy of report has been placed in patient chart.
[2022-10-18 15:18] VITALS: BP 128/60
[2022-10-18] MEDS: ZOLPIDEM 5 MG TABLET PO PRN (20:55)
[2022-10-19] MEDS: CEphaleXIN 500 MG CAPSULE PO SCH ×3 (05:54→21:18)
[2022-10-19 07:56] VITALS: BP 129/57
--- NOTE | 2022-10-19 09:14 | NUR ---
Gps/Head Waiter/Waitress Banquet- Confused, incoherent, constantly needing to be redirected, wanders around , fidgety encouraged to take her routine am meds.
[2022-10-19] MEDS: QUETIAPINE FUMARATE 25 MG TABLET PO SCH ×3 (09:15→20:25)
[2022-10-19] MEDS: MEMANTINE HCL 10 MG TABLET PO SCH ×2 (09:15→20:25)
[2022-10-19] MEDS: BENAZEPRIL HCL 20 MG TABLET PO SCH (09:19)
[2022-10-19] MEDS: CYANOCOBALAMIN 1,000 MCG TABLET PO SCH (09:19)
--- NOTE | 2022-10-19 11:07 | NUR ---
GPS 14 Day Hold Certification: Patient place on 9880, Certification given to patient and explained. Patient was informed that a certification review hearing will be hel with in four days. Also, patient's right advocate will call to provide technical services assistant on answering her questions. The court has been notified of this certification via [facility] Portal this day.
[2022-10-19 16:36] VITALS: BP 138/60
--- NOTE | 2022-10-19 18:00 | NUR ---
Gps/Facility Planner- Refusing to shower, refusing pm care , confused , wants to leave, kept wandering around claimed looking for her car , she parked outside . Prompted to take routine medications , awol risk, constantly needing reorientation , emphasized . safety .
[2022-10-19] MEDS: LORAZEPAM 1 MG TABLET PO PRN (19:39)
[2022-10-19 20:41] VITALS: BP 111/53
--- NOTE | 2022-10-19 21:48 | NUR ---
AAOx1-2 Confused and disoriented. Wanders around the unit. Easily redirected. Continent of bowel and bladder. Patient on ABT for UTI. On Keflex, given as ordered. Compliant with her meds. Ativan given for anxiety. Will monitor patient. Siderails up for safety.
[2022-10-19] MEDS: ZOLPIDEM 5 MG TABLET PO PRN (23:12)
[2022-10-20] MEDS: CEphaleXIN 500 MG CAPSULE PO SCH ×3 (05:49→21:00)
[2022-10-20 08:17] VITALS: BP 137/73
[2022-10-20] MEDS: BENAZEPRIL HCL 20 MG TABLET PO SCH (09:57)
[2022-10-20] MEDS: MEMANTINE HCL 10 MG TABLET PO SCH ×2 (09:58→20:46)
[2022-10-20] MEDS: CYANOCOBALAMIN 1,000 MCG TABLET PO SCH (09:58)
[2022-10-20] MEDS: QUETIAPINE FUMARATE 25 MG TABLET PO SCH ×3 (09:59→20:46)
[2022-10-20 16:29] VITALS: BP 129/66
[2022-10-20] MEDS: LORAZEPAM 1 MG TABLET PO PRN (16:56)
--- NOTE | 2022-10-20 18:31 | NUR ---
Pt is confused, incoherent, nonsensical, constantly needing to be redirected, wanders around , fidgety , easily irritable and can be combative at times. Pt talk to her self and can be intrusive at times. Pt ca not sustain a meaningful conversation. Pt was compliant with medications on this shift. Pt was reoriented, redirected, reassurance and emotional support provided. Safety measures put in place,continue to monitor for safety.
[2022-10-20 20:00] VITALS: BP 130/64
[2022-10-21] MEDS: CEphaleXIN 500 MG CAPSULE PO SCH ×3 (06:20→20:34)
[2022-10-21 07:59] VITALS: BP 113/54
[2022-10-21] MEDS: BENAZEPRIL HCL 20 MG TABLET PO SCH (09:01)
[2022-10-21] MEDS: CYANOCOBALAMIN 1,000 MCG TABLET PO SCH (09:01)
[2022-10-21] MEDS: MEMANTINE HCL 10 MG TABLET PO SCH ×2 (09:01→20:34)
[2022-10-21] MEDS: QUETIAPINE FUMARATE 25 MG TABLET PO SCH ×3 (09:01→20:34)
--- NOTE | 2022-10-21 16:07 | NUR ---
GPS: Nursing Notes: Thought Disorder: patient is awake and responding to her name, wandering around the unit aimlessly, impaired judgment, poor insight, redirected and reoriented during shift, unable to formulate a viable plan for self care, talking incoherently, gets easily angry when redirected, disorganized, confused, forgetful, unable to find her room by self at times, continue to monitor for safety, continue with treatment plan.
[2022-10-21 16:33] VITALS: BP 121/65
[2022-10-21] MEDS: GLUCERNA SHAKE 237 ML CAN PO SCH (16:46)
[2022-10-21 19:54] VITALS: BP 116/56
[2022-10-21] MEDS: LORAZEPAM 1 MG TABLET PO PRN (20:33)
--- NOTE | 2022-10-22 02:33 | NUR ---
Received patient wandering around the unit, going in and out of different patients rooms, disoriented. Confused and unable to be redirected for more the a couple minutes. This patient refused to take her medications and swatted at this service writer advisor, the first time they were offered, but did comply shortly after. The patient is unable to engage in any sensible conversation and has poor insight or situational awareness. Safety Stratiges are in place and continuing to monitor for any behavior escalation or combativeness.
[2022-10-22] MEDS: CEphaleXIN 500 MG CAPSULE PO SCH ×3 (06:57→21:01)
[2022-10-22 08:00] VITALS: BP 116/46
[2022-10-22] MEDS: MEMANTINE HCL 10 MG TABLET PO SCH ×2 (08:21→20:27)
[2022-10-22] MEDS: QUETIAPINE FUMARATE 25 MG TABLET PO SCH ×3 (08:21→20:27)
[2022-10-22] MEDS: CYANOCOBALAMIN 1,000 MCG TABLET PO SCH (08:21)
[2022-10-22] MEDS: BENAZEPRIL HCL 20 MG TABLET PO SCH (08:22)
[2022-10-22] MEDS: GLUCERNA SHAKE 237 ML CAN PO SCH ×2 (08:22→16:30)
--- NOTE | 2022-10-22 14:45 | NUR ---
GPS: Nursing Notes: Thought Disorder: Patient is awake and responding to her name, disoriented, confused, disorganized, labile, gets easily irritable when redirected, sundown behavior, poor impulse control, poor anger management, wandering around the unit aimlessly, intrusive, getting into other patient's room, setting limits, but poor insight, poor judgment, redirected and reoriented during shift, unable to formulate a viable plan for self care, continue to monitor for safety, continue with treatment plan.
[2022-10-22 16:00] VITALS: BP 117/66
[2022-10-22 20:13] VITALS: BP 112/56
--- NOTE | 2022-10-23 04:54 | NUR ---
Received patient up ambulate in hallways, able to make some needs known. Patient confused needs to re direct, patient goes to other patient room and sleep, Patient sleep then wake up and ambulate in the hallways, Patient calm and cooperative with care at this time.
[2022-10-23] MEDS: CEphaleXIN 500 MG CAPSULE PO SCH (06:41)
[2022-10-23 08:00] VITALS: BP 115/62
[2022-10-23] MEDS: BENAZEPRIL HCL 20 MG TABLET PO SCH (10:25)
[2022-10-23] MEDS: CYANOCOBALAMIN 1,000 MCG TABLET PO SCH (10:25)
[2022-10-23] MEDS: QUETIAPINE FUMARATE 25 MG TABLET PO SCH ×3 (10:28→20:53)
[2022-10-23] MEDS: MEMANTINE HCL 10 MG TABLET PO SCH ×2 (10:28→20:53)
[2022-10-23] MEDS: GLUCERNA SHAKE 237 ML CAN PO SCH ×2 (11:15→18:17)
[2022-10-23] MEDS: LORAZEPAM 1 MG TABLET PO PRN (12:03)
[2022-10-23 16:00] VITALS: BP 116/55
[2022-10-23 20:00] VITALS: BP 127/63
[2022-10-24] MEDS: ZOLPIDEM 5 MG TABLET PO PRN ×2 (00:18→20:58)
--- NOTE | 2022-10-24 06:23 | NUR ---
slept only 2.30 hrs through the night after sleeping meds given. remain confused and disoriented. assisted with adl's. continue plan of care.
[2022-10-24 07:40] VITALS: BP 147/73
[2022-10-24] MEDS: CYANOCOBALAMIN 1,000 MCG TABLET PO SCH (09:43)
[2022-10-24] MEDS: BENAZEPRIL HCL 20 MG TABLET PO SCH (09:44)
[2022-10-24] MEDS: MEMANTINE HCL 10 MG TABLET PO SCH ×2 (09:44→20:59)
[2022-10-24] MEDS: QUETIAPINE FUMARATE 25 MG TABLET PO SCH ×4 (09:44→20:58)
[2022-10-24] MEDS: GLUCERNA SHAKE 237 ML CAN PO SCH ×2 (09:45→16:50)
[2022-10-24] MEDS: LORAZEPAM 1 MG TABLET PO PRN ×2 (14:17→22:32)
--- NOTE | 2022-10-24 14:48 | NUR ---
Nursing - Remans up in her arley-chair roaming around the hallway. Had been compliant with her routine am meds. confusion noted , needing redirections most of the time. Reoriented from time to time, monitoring her needs.Safety emphasized
--- NOTE | 2022-10-24 15:17 | NUR ---
Patient had court hearing today, quality assurance engineer Yunior Ang gave 14 Day hold probable cause for GD.
[2022-10-24 16:23] VITALS: BP 146/83
--- NOTE | 2022-10-24 19:30 | NUR ---
Received patient sitting in the arley chair, able to wheel herself around the hallway. Confused and disoriented. Some anxiety noted, reorientation provided.
[2022-10-24 21:21] VITALS: BP 127/72
--- NOTE | 2022-10-25 05:26 | NUR ---
Patient slept 7.15 hours.
[2022-10-25 08:25] VITALS: BP 123/65
[2022-10-25] MEDS: QUETIAPINE FUMARATE 25 MG TABLET PO SCH ×4 (09:47→20:54)
[2022-10-25] MEDS: BENAZEPRIL HCL 20 MG TABLET PO SCH (09:47)
[2022-10-25] MEDS: MEMANTINE HCL 10 MG TABLET PO SCH ×2 (09:47→20:54)
[2022-10-25] MEDS: CYANOCOBALAMIN 1,000 MCG TABLET PO SCH (09:48)
[2022-10-25] MEDS: GLUCERNA SHAKE 237 ML CAN PO SCH (09:49)
--- NOTE | 2022-10-25 17:00 | NUR ---
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 stayed in her group activity , noted irritability when trying to assist with her pm care. Kept in her chair for awhile , tends to wander around, needing constant redirections, and reorientation
[2022-10-25 17:26] VITALS: BP 125/57
[2022-10-25] MEDS: LORAZEPAM 1 MG TABLET PO PRN (20:54)
[2022-10-25 21:56] VITALS: BP 98/52
--- NOTE | 2022-10-26 03:01 | NUR ---
Received the patient in the day room, taking food out of the trash and giving it to other confused patients. This patient is forgetful, disoriented, confused, easily irritated and has a very short term memory at best. When staff tries to redirect or reorient her, she became loud and argumentative. The patient is compliant with medications after 1-2 prompts and assistance. Constant monitoring needed d/t the patient walking into other rooms, taking things that do not belong to her, fishing in the trash, rooting around the unit and hoarding items. Safety Stratiges are in place and on going. Continuing to monitor the patient for further behavior escalation and combativeness.
--- NOTE | 2022-10-26 07:41 | NUR ---
GPS Nursing noted; patient is sitting in arley-chair, with no S/S of distress noted. Fall and safety precaution implemented. Will continue to monitor.
[2022-10-26 08:31] VITALS: BP 117/69
[2022-10-26] MEDS: BENAZEPRIL HCL 20 MG TABLET PO SCH (09:42)
[2022-10-26] MEDS: MEMANTINE HCL 10 MG TABLET PO SCH ×2 (09:42→20:16)
[2022-10-26] MEDS: QUETIAPINE FUMARATE 25 MG TABLET PO SCH ×4 (09:42→20:16)
[2022-10-26] MEDS: CYANOCOBALAMIN 1,000 MCG TABLET PO SCH (09:43)
[2022-10-26 16:34] VITALS: BP 98/51
[2022-10-26] MEDS: LORAZEPAM 1 MG TABLET PO PRN (20:34)
[2022-10-27 08:51] VITALS: BP 109/54
[2022-10-27] MEDS: BENAZEPRIL HCL 20 MG TABLET PO SCH (09:00)
[2022-10-27] MEDS: QUETIAPINE FUMARATE 25 MG TABLET PO SCH ×4 (09:04→21:08)
[2022-10-27] MEDS: MEMANTINE HCL 10 MG TABLET PO SCH ×2 (09:07→21:08)
[2022-10-27] MEDS: CYANOCOBALAMIN 1,000 MCG TABLET PO SCH (09:08)
[2022-10-27] MEDS: LORAZEPAM 1 MG TABLET PO PRN ×2 (12:22→21:08)
--- NOTE | 2022-10-27 15:59 | NUR ---
Received patient is confused wandering around the unit , impaired judgment, poor insight, redirected and reoriented during shift, unable to formulate a viable plan for self care, talking incoherently., forgetful, unable to find her room by self at times, continue to monitor for safety, continue with treatment plan.
[2022-10-27 16:14] VITALS: BP 106/55
[2022-10-27 22:32] VITALS: BP 133/56
[2022-10-28] MEDS: ZOLPIDEM 5 MG TABLET PO PRN (02:05)
--- NOTE | 2022-10-28 02:46 | NUR ---
Patient up in the night , wondering into the other patients rooms, disoriented and difficult to redirect. Patient is irritable, paranoid has been yelling and hit the staff providing care. She is confused and unable to comprehend anything that is explained to her. This patient is argumentative most of the time during the warehouse worker 2nd shift. The patient requires constant monitoring by the staff to prevent injury to herself and others. Safety Stratiges ongoing. PRN medication for sleep given. Not effective at this time.
[2022-10-28 08:21] VITALS: BP 162/90
[2022-10-28] MEDS: QUETIAPINE FUMARATE 25 MG TABLET PO SCH ×3 (08:43→17:44)
[2022-10-28] MEDS: BENAZEPRIL HCL 20 MG TABLET PO SCH (08:43)
[2022-10-28] MEDS: CYANOCOBALAMIN 1,000 MCG TABLET PO SCH (08:43)
[2022-10-28] MEDS: MEMANTINE HCL 10 MG TABLET PO SCH ×2 (08:43→20:47)
[2022-10-28] MEDS: LORAZEPAM 1 MG TABLET PO PRN ×2 (13:58→23:41)
--- NOTE | 2022-10-28 14:41 | NUR ---
GPS: Nursing Notes: Thought Disorder: Patient is awake and responding to her name, impaired judgment, poor insight, disoriented, disorganized, wandering around the unit aimlessly, AWOL risk, redirected and reoriented during shift, confused at times, sundown behavior, gets easily irritable when redirected, poor impulse control, unable to formulate a viable plan for self care, continue with treatment plan.
[2022-10-28 16:52] VITALS: BP 107/70
[2022-10-28 19:58] VITALS: BP 126/79
[2022-10-28] MEDS ORDERED: QUETIAPINE FUMARATE 100 MG TABLET PO SCH (21:00)
[2022-10-28] MEDS ORDERED: QUETIAPINE FUMARATE 25 MG TABLET PO SCH (21:00)
[2022-10-29] MEDS: LORAZEPAM 1 MG TABLET PO PRN ×2 (07:30→13:38)
[2022-10-29] MEDS: BENAZEPRIL HCL 20 MG TABLET PO SCH (08:32)
[2022-10-29] MEDS: MEMANTINE HCL 10 MG TABLET PO SCH (08:33)
[2022-10-29] MEDS: QUETIAPINE FUMARATE 25 MG TABLET PO SCH ×2 (08:33→12:12)
[2022-10-29] MEDS: CYANOCOBALAMIN 1,000 MCG TABLET PO SCH (08:33)
[2022-10-29 08:44] VITALS: BP 149/78
--- NOTE | 2022-10-29 09:20 | NUR ---
KRISTAL Discharge Note: Pt will be discharged to [facility] us[facility] [place] [id number]) [phone] via FACILITY TRANSPORTATION at 2PM. KRISTAL spoke with admin coordinator, Katie at the facility who states they are ready to accept the patient today. Pt is aware and agreeable with discharge plan. Pt's daughter/DPOA, Sophia [phone] is aware and agreeable with the discharge plan. Pt is alert and oriented x1, is unable to plan for self-care at this time. However, pt is willing to accept care at SNF. Pt denies any suicidal or homicidal ideation. Pt will follow-up at the facility with Psychiatrist, Dr. Gonzalez and Security Sales Consultant, Dr. Tillman. Pt presents with calm mood and congruent affect. PHARMACY: [facility] [address] [facility] .
--- NOTE | 2022-10-29 14:15 | NUR ---
GPS: Nursing Notes: Discharge Notes: patient is awake and responding to her name, wandering around the unit aimlessly, compliant with her medications, forgetful, cooperative with nursing care, denies SI/HI, denies AH/VH, denies pain or discomfort, denies SOB. Patient discharged to [facility]. SNF at [address] [place] [id number] . Patient's daughter/DPANIBAL - Sophia informed of discharge plans by health care social worker. Transported to facility via facility's transportation, report given to facility's admitting nurse - ANGEL Mares cloth shearing supervisor. Took all her belongings with her. Patient will follow up with Dr. Gonzalez (psychiatrist) and Dr. Tillman (fruit and vegetable factory worker) for aftercare at the facility.
== END 2022-10-29 14:15 | DRG 885 ==
LOC: ER 11:36 → GPS 15:57
PROVIDERS: ADMIT Psychiatry & Neurology Psychiatry; ATTEND Nurse Practitioner Acute Care
DX: F29 Unspecified psychosis not due to a substance or known physiological condition (principal); N39.0 Urinary tract infection, site not specified; F02.82 Dementia in other diseases classified elsewhere, unspecified severity, with psychotic disturbance; F02.83 Dementia in other diseases classified elsewhere, unspecified severity, with mood disturbance; F02.811 Dementia in other diseases classified elsewhere, unspecified severity, with agitation; G30.9 Alzheimer's disease, unspecified; I49.5 Sick sinus syndrome; I10 Essential (primary) hypertension; E78.5 Hyperlipidemia, unspecified; R79.89 Other specified abnormal findings of blood chemistry; Z86.16 Personal history of COVID-19; Z79.899 Other long term (current) drug therapy; Z91.199 Patient's noncompliance with other medical treatment and regimen due to unspecified reason; Z95.0 Presence of cardiac pacemaker
CPT/HCPCS: 36415; 84443; 85025; 93005; G0480; J0696; J1630; J2060; J3490